=== PATIENT | male | born 1955 | race Caucasian/White ===

== ENCOUNTER 2019-02-15 12:00 | Observation (INO) ==
[2019-02-15 12:33] LABS: Basophils # (auto) 0.02 K/uL (0-0.2); Basophils % (auto) 0.3 %; Eosinophils # (auto) 0.09 K/uL (0-0.5); Eosinophils % (auto) 1.5 %; Hematocrit (blood only) 46.6 % (42-52); Immature Granulocytes # (auto) 0.01 K/uL (0.00-0.02); Immature Granulocytes % (auto) 0.2 %; Lymphocytes # (auto) 0.93 K/uL (1.2-3.4); Lymphocytes % (auto) 15.5 %; Mean Corpuscular Hemoglobin 30.8 pg (25-34); Mean Corpuscular Hgb Conc 34.3 g/dL (32-36); Mean Corpuscular Volume 89.8 fL (80-100); Mean Platelet Volume 11.2 fL (7.4-10.4); Monocytes # (auto) 0.48 K/uL (0.11-0.59); Neutrophils # (auto) 4.46 K/uL (1.4-6.5); Neutrophils % (auto) 74.5 %; Platelet Count 246 K/uL (130-400); RDW Coefficient of Variation 13.2 % (11.5-14.5); RDW Standard Deviation 43.7 fL (36.4-46.3); Red Blood Count 5.19 M/uL (4.7-6.1); White Blood Count 5.99 K/uL (4.8-10.8)
--- NOTE | 2019-02-15 12:41 | XRay Report ---
XR chest 1V portable CLINICAL HISTORY: Chest Pain COMPARISON STUDY: No previous studies for comparison. FINDINGS: Lung volumes are mildly diminished. Right basilar opacity favors atelectasis. There is no p neumothorax or pleural effusion. There is no consolidation or evidence for pulmonary edema. Cardiomed iastinal silhouette is unremarkable. IMPRESSION: No acute cardiopulmonary findings. Electronically signed by: Miguel Benito M.D. 02/15/2019 12:40 PM
[2019-02-15 12:48] LABS: Alanine Aminotransferase 47 U/L (12-78); Albumin Level 3.7 gm/dl (3.4-5.0); Aspartate Aminotransferase 22 U/L (15-37); Blood Urea Nitrogen 21 mg/dl (7-18); Calcium 8.5 mg/dl (8.5-10.1); Carbon Dioxide 22 mmol/L (21-32); Chloride 108 mmol/L (98-107); Creatinine Clr Calc Pharmacy 92.1 ml/min; Est GFR (African American) 98.3; Est GFR (Non-African American) 84.9; Glucose 113 mg/dl (70-99); Potassium 3.9 mmol/L (3.5-5.1); Sodium 140 mmol/L (136-145)
[2019-02-15 12:56] LABS: Albumin Globulin Ratio 1.2 (0.9-2); Alkaline Phosphatase 61 U/L (45-117); Bilirubin,Total 0.4 mg/dl (0.2-1); Total Protein 6.7 gm/dl (6.4-8.2); Troponin I < 0.015 ng/ml (0-0.045)
[2019-02-15] MEDS ORDERED: NITROGLYCERIN 2% OINTMENT 30GM TUBE EXT ONE (13:18)
[2019-02-15 13:29] LABS: INR 0.9 (0.9-1.1); Prothrombin Time 9.7 Seconds (9.0-12.0)
[2019-02-15 14:17] LABS: Partial Thromboplastin Time 26.5 Seconds (21.0-31.0)
--- NOTE | 2019-02-15 15:19 | History & Physical Report ---
Date of Service February 15, 2019 Assessment & Plan (1) Chest pain, precordial: Sx concerning for ACS Trop neg x1, serials pending EKG neg for acute If trop neg, stress treadmill in AM t/c Lyme given hx and exposure risk, testing pending (2) Hx of Lyme disease: Hx of sx resolution with tx despite neg Lyme testing Current bite, no rash Lyme pending (3) DVT prophylaxis: Ambulation History of Present Illness Primary Care Provider: LILA GOMEZ 63 y/o M c/o chest pain. Pt states he was driving to work this AM when he had sudden onset of sharp, stabbing chest pain that started on the R side of his chest and moved to the L side and into both UE. He had numbness and tingling in his UE. He became SOB and diaphoretic. Pt pulled over to the side of the road and leaned over the steering wheel and all sx resolved. He continued on his way to work, however his sx returned so he came to the ED. Pt was given nitro and sx have mostly resolved. He states he still has slight L UE pain, but much better. He has no hx of prior chest pain issues. 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 He had no issues over the weekend with light work around his home. He has been eating without issue. No prior SOB. Pt denies fever, abd pain, n/v/c/d, LE pain. Pt states chronic L LE swelling s/p crush injury. Pt notes hx of Lyme x2 in which he was hospitalized, the last time being earlier this year in the Spring. He states that he has never had chest pain with his Lyme dx, but that his blood tests are always negative. He had a bull's eye rash during one of these episodes. He was treated with doxy based on sx and both times felt much improved after starting abx. His sx were fatigue, dehydration, abn labs. Pt did recently travel to [facility] in November of this year. No other health issues since the Lyme dx prior to this trip. Pt does note a bite on his L thigh. He felt it was more c/w a spider bite. No rash. Frequent tick exposure as a evening sitter. Allergies Allergy/AdvReac Type Severity Reaction Status Date / Time No Known Allergies Allergy Unverified 02/15/19 12:50 Home Medications Home Medications Medication Instructions Recorded Confirmed Type No Known Home Medications 02/15/19 02/15/19 History Past Med/Surg History Medical History No significant past medical history Family History Grandfather Myocardial infarction, Onset Age: 63 Sister Myocardial infarction, Onset Age: 63 Social History Feels Safe at Home: Yes Smoking Status: Never smoker Hx Alcohol Use: Yes (shot of whiskey HS a few nights a week for sleep, none in the last week) Hx Substance Use: No Review of Systems Review of Systems: Pertinent positives and negatives reviewed in HPI--all others negative Physical Exam Constitutional: WD/WN, vitals as above Eyes: normal visual smallwood by confrontation and + anicteric sclerae Neck: normal visual inspection and trachea midline Respiratory: normal respiratory effort, lungs clear to auscultation Cardiovascular: Rate/Rhythm: regular rate and regular rhythm Gastrointestinal (Abdomen): Inspection/Auscultation: abdomen not distended Percussion/Palpation: abdomen soft; abdomen nontender Musculoskeletal: Head/Neck/Chest: normocephalic and head atraumatic Trace L LE edema, peripheral pulses intact Skin: no rashes, warm and dry Neurologic: awake; not confused Speech / Cognition: normal speech Psychiatric: A+Ox3, euthymic affect Results & Data Vital Signs (Past 12 Hours) Vital Signs Temp Pulse Pulse Resp BP BP Pulse Ox 02/15/19 15:00 66 20 133/93 93 02/15/19 14:09 65 18 139/88 93 02/15/19 12:07 36.9 C 75 18 154/86 H 94 Diagnostic Findings CXR: neg for acute ECG Rhythm: normal sinus Code Status & VTE Plan Code Status Full code VTE Prophylaxis Plan VTE Prophylaxis will be ordered: Yes PG Care Time/CCT Total # of Minutes Spent Total Time Spent with Patient: Total time spent is greater than 50% in coordination of care (as documented) at patient's floor/unit and/or counseling patient:
--- NOTE | 2019-02-15 17:21 | Emergency Department Note ---
Entered by Lesley Mauro acting as a scribe for Cristhian Rainey MD History of Present Illness General Chief complaint: Chest Pain Stated complaint: chest pain Source: patient History of Present Illness Onset (ago): hour(s) 3 Location: chest Pain Consistency: + other (episodes) Maximum Pain Intensity: 0 Quality: + other (chest tightness) Associated symptoms: + diaphoresis, + nausea/vomiting, + shortness of breath and + other (+bilateral shoulder blades pain; +neck stiffness; -leg swelling/pain) Treatments prior to arrival: other (sublingual NG) The patient is a 63 year old male who presents to the Emergency Room with complaints of two episodes of chest tightness that began approximately 2-3 hours ago. 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 The patient states along with the chest tightness, both his shoulder blades began to hurt and he became short of breath. The patient also notes neck stiffness and becoming sweaty and nauseous. The patient states the episode then let up, and he began to continue driving to work. The patient states he then experienced another episode of symptoms upon arriving to work. The patient states he was given sublingual NG en route, which he states has helped his breathing. The patient describes the chest tightness as an 8/10 at its worst, and he currently rates it as a 3/10. The patient denies swelling or pain in his legs different from baseline. The patient denies history of lungs in clots. The patient states he or his family have never had cardiac issues in the past. The patient notes he went to [facility] in early November. The patient denies being a smoker. Home Medications Home Medications Medication Instructions Recorded Confirmed Type No Known Home Medications 02/15/19 02/15/19 History Allergies Allergy/AdvReac Type Severity Reaction Status Date / Time No Known Allergies Allergy Unverified 02/15/19 12:50 Past Med/Surg History Medical History No significant past medical history Family History Grandfather Myocardial infarction, Onset Age: 63 Sister Myocardial infarction, Onset Age: 63 Social History Feels Safe at Home: Yes Smoking Status: Never smoker Hx Alcohol Use: Yes (shot of whiskey HS a few nights a week for sleep, none in the last week) Hx Substance Use: No Review of Systems See HPI for pertinent positives & negatives. and A total of 10 systems reviewed and were otherwise negative Physical Exam Vital Signs Vital Signs - 24 hr 02/15/19 12:07 02/15/19 14:09 02/15/19 15:00 Temperature 36.9 C Temperature Source Oral Sepsis Recent Fever Within 48 Hours No Sepsis New/Unexplained Change in Mental Status No Sepsis Action Taken by Nursing No Action Required Pulse Rate 75 Pulse Rate [Apical] 65 66 Pulse Rhythm [Apical] Regular Respiratory Rate 18 18 20 Respiratory Effort / Characteristics Non-Labored Spontaneous Non-Labored Spontaneous Respiratory Depth Normal Normal Respiratory Pattern Regular Regular Blood Pressure 154/86 H Blood Pressure [Right Arm] 139/88 133/93 Blood Pressure Mean 108 Blood Pressure Mean [Right Arm] 105 106 Blood Pressure Position [Right Arm] Lying Pulse Oximetry 94 93 93 Oxygen Delivery Method Room Air Room Air Room Air 02/15/19 15:42 02/15/19 16:16 Temperature Temperature Source Sepsis Recent Fever Within 48 Hours Sepsis New/Unexplained Change in Mental Status Sepsis Action Taken by Nursing Pulse Rate Pulse Rate [Apical] 73 57 L Pulse Rhythm [Apical] Respiratory Rate 16 16 Respiratory Effort / Characteristics Non-Labored Spontaneous Non-Labored Spontaneous Respiratory Depth Respiratory Pattern Blood Pressure Blood Pressure [Right Arm] 135/86 115/74 Blood Pressure Mean Blood Pressure Mean [Right Arm] 102 87 Blood Pressure Position [Right Arm] Lying Lying Pulse Oximetry 95 95 Oxygen Delivery Method Room Air Room Air Constitutional: Vital signs reviewed. Eyes: Pupils are equal round reactive to light. Conjunctiva are noninjected. ENT: Pharynx is clear without erythema or exudate. Mucous membranes are moist. Neck supple without meningeal signs. Respiratory: Clear to auscultation bilaterally. Breath sounds are equal bilaterally. Cardiovascular: Regular rate and rhythm. No rubs or gallops. GI: Soft, nondistended and nontender. Bowel sounds are present. Musculoskeletal: No peripheral edema. No lower extremity tenderness. Integumentary: No cyanosis. Neurological: The patient is awake and alert. No focal deficits. Psychiatric: Normal affect. Course 1312: Past medical records reviewed. The patient was evaluated in room A9A. A complete history and physical exam was performed. 1338: I reevaluated the patient. The patient states the chest tightness is gone. The patient's D-Dimer was negative. 1341: I reviewed the patient's case with Marianna Waller. Dr. Vasquez- Poncho Waller will evaluate the patient for further management. 1409: The welfare case worker informed me that the patient's insurance information was incorrect, and the patient could not be seen at [facility]. I reviewed the patient's case with Dr. Montano-Poncho [facility]. Dr. Montano will evaluate the patient for further management. Consultations Consultation #1: I reviewed the patient's case with Marianna Waller. Dr. Augustina Waller will evaluate the patient for further management. Time: 13:41 Consultation #2: The welfare case worker informed me that the patient's insurance information was incorrect, and the patient could not be seen at [facility]. I reviewed the patient's case with Dr. Thomas [facility]. Dr. Montano will evaluate the patient for further management. Time: 14:09 Additional Consultation(s): Administered Medications Discontinued Medications Nitroglycerin (Nitro-Bid 2%) 1 inch EXT NOW ONE Stop: 02/15/19 13:19 Last Admin: 02/15/19 13:30 Dose: 1 inch Documented by: [id number] Medical Decision Making Differential Diagnosis Differential diagnoses include unstable angina, VT, PE, pleurisy, GERD, amongst others. Medical Records Attestation: I reviewed the patient's medical records. I did perform a limited focused review of portions of the patient's old chart on the electronic medical record. The patient has had no recent pertinent visits to this hospital. Home Medications Current Medication List: was personally reviewed by me Laboratory Data Attestation: I reviewed the patient's lab results. Result diagrams: 02/15/19 11:41 02/15/19 11:41 Lab Results 02/15/19 02/15/19 02/15/19 Range/Units 11:41 11:41 11:41 WBC 5.99 (4.8-10.8) K/uL RBC 5.19 (4.7-6.1) M/uL Hgb 16.0 (14.0-18.0) g/dL Hct 46.6 (42-52) % MCV 89.8 (80-100) fL MCH 30.8 (25-34) pg MCHC 34.3 (32-36) g/dL RDW Std Deviation 43.7 (36.4-46.3) fL RDW Coeff of Dexter 13.2 (11.5-14.5) % Plt Count 246 (130-400) K/uL MPV 11.2 H (7.4-10.4) fL Immature Gran % (Auto) 0.2 % Neut % (Auto) 74.5 % Lymph % (Auto) 15.5 % Rogers % (Auto) 8.0 % Eos % (Auto) 1.5 % Baso % (Auto) 0.3 % Immature Gran # (Auto) 0.01 (0.00-0.02) K/uL Neut # (Auto) 4.46 (1.4-6.5) K/uL Lymph # (Auto) 0.93 L (1.2-3.4) K/uL Rogers # (Auto) 0.48 (0.11-0.59) K/uL Eos # (Auto) 0.09 (0-0.5) K/uL Baso # (Auto) 0.02 (0-0.2) K/uL PT Cancelled INR Cancelled APTT Cancelled PTT Ratio Cancelled POC D-Dimer (0-450) ng/mlFEU Sodium 140 (136-145) mmol/L Potassium 3.9 (3.5-5.1) mmol/L Chloride 108 H (98-107) mmol/L Carbon Dioxide 22 (21-32) mmol/L Anion Gap 10.0 (3-11) BUN 21 H (7-18) mg/dl Creatinine 0.95 (0.6-1.4) mg/dl Est Cr Clr Drug Dosing 92.1 ml/min Est GFR ( Amer) 98.3 Est GFR (Non-Af Amer) 84.9 BUN/Creatinine Ratio 22.0 H (10-20) Glucose 113 H (70-99) mg/dl Calcium 8.5 (8.5-10.1) mg/dl Total Bilirubin 0.4 (0.2-1) mg/dl AST 22 (15-37) U/L ALT 47 (12-78) U/L Alkaline Phosphatase 61 (45-117) U/L Troponin I < 0.015 (0-0.045) ng/ml Total Protein 6.7 (6.4-8.2) gm/dl Albumin 3.7 (3.4-5.0) gm/dl Globulin 3.0 (2.5-4.0) gm/dl Albumin/Globulin Ratio 1.2 (0.9-2) 02/15/19 02/15/19 02/15/19 Range/Units 13:03 13:03 13:23 WBC (4.8-10.8) K/uL RBC (4.7-6.1) M/uL Hgb (14.0-18.0) g/dL Hct (42-52) % MCV (80-100) fL MCH (25-34) pg MCHC (32-36) g/dL RDW Std Deviation (36.4-46.3) fL RDW Coeff of Dexter (11.5-14.5) % Plt Count (130-400) K/uL MPV (7.4-10.4) fL Immature Gran % (Auto) % Neut % (Auto) % Lymph % (Auto) % Rogers % (Auto) % Eos % (Auto) % Baso % (Auto) % Immature Gran # (Auto) (0.00-0.02) K/uL Neut # (Auto) (1.4-6.5) K/uL Lymph # (Auto) (1.2-3.4) K/uL Rogers # (Auto) (0.11-0.59) K/uL Eos # (Auto) (0-0.5) K/uL Baso # (Auto) (0-0.2) K/uL PT 9.7 INR 0.9 APTT 26.5 PTT Ratio 1.0 POC D-Dimer 326 (0-450) ng/mlFEU Sodium (136-145) mmol/L Potassium (3.5-5.1) mmol/L Chloride (98-107) mmol/L Carbon Dioxide (21-32) mmol/L Anion Gap (3-11) BUN (7-18) mg/dl Creatinine (0.6-1.4) mg/dl Est Cr Clr Drug Dosing ml/min Est GFR ( Amer) Est GFR (Non-Af Amer) BUN/Creatinine Ratio (10-20) Glucose (70-99) mg/dl Calcium (8.5-10.1) mg/dl Total Bilirubin (0.2-1) mg/dl AST (15-37) U/L ALT (12-78) U/L Alkaline Phosphatase (45-117) U/L Troponin I (0-0.045) ng/ml Total Protein (6.4-8.2) gm/dl Albumin (3.4-5.0) gm/dl Globulin (2.5-4.0) gm/dl Albumin/Globulin Ratio (0.9-2) Imaging Data Radiologist's Impression: Radiology results as stated below per my review and the radiologist's interpretation: XR chest 1V portable CLINICAL HISTORY: Chest Pain COMPARISON STUDY: No previous studies for comparison. FINDINGS: Lung volumes are mildly diminished. Right basilar opacity favors atelectasis. There is no pneumothorax or pleural effusion. There is no consolidation or evidence for pulmonary edema. Cardiomediastinal silhouette is unremarkable. IMPRESSION: No acute cardiopulmonary findings. Electronically signed by: Miguel Benito M.D. 02/15/2019 12:40 PM ECG Data Attestation: I personally reviewed and interpreted this ECG as follows: Indication: chest pain Rate (beats per minute): 85 Rhythm: normal sinus Findings: no PVC and no ST elevation Blood Pressure Blood Pressure Findings: Elevated blood pressure Blood Pressure Disposition: Referred to patients primary care provider MDM Narrative I did evaluate the patient as noted above. He is presenting with a concerning history for cardiac disease. He developed chest pressure and heaviness with shortness of breath and radiation to his shoulders. He was diaphoretic and isabella seous. He had some relief with nitroglycerin sublingually. I did treat him with nitroglycerin paste here as he has some residual chest pain. The patient was placed on a continuous vacuum technician. I did order and personally review the patient's 12-lead EKG as described above. His twelve-lead EKG does not demonstrate any acute ischemia. I did order and personally reviewed the images of the patient's chest x-ray as described above. Chest x-ray is unremarkable. I did order and review the patient's blood work as noted in the electronic medical record. Initial troponin is negative. D-dimer is negative as well. I did discuss the test results with the patient. I did recommend hospitalization for further care and evaluation and repeat cardiac biomarkers. I did speak to the hospitalist and welfare case worker regarding this patient. Impression & Plan Chest pain, precordial Discharge Plan Visit Data Chief Complaint: Chest Pain Stated Complaint: chest pain ED Provider: Cristhian Rainey Discharge Problem: Chest pain, precordial Patient Disposition: Being Evaluated by Hospitalist Forms Stand Alone Forms: Call Back Authorization, My [facility] Prescriptions Prescriptions: No Action No Known Home Medications RF: 0 Referrals Referrals: PCP,NO [Physician] - The scribe's documentation has been prepared under my direction and personally reviewed by me in its entirety. I confirm that the note above accurately reflects all work, treatment, procedures, and medical decision making performed by me.
[2019-02-15] MEDS ORDERED: ONDANSETRON INJ 2 MG/ML 2 ML VIAL IV PRN (18:21)
[2019-02-15] MEDS ORDERED: MAGNESIUM HYDROXIDE SUSP 30 ML UDC PO PRN (18:21)
[2019-02-15 19:30] LABS: Lyme Ab IgG w/WB Rflx Negative (Negative); Lyme Ab IgM w/WB Rflx Negative (Negative)
[2019-02-15] MEDS: NITROGLYCERIN SL 0.4 MG/TAB TAB SL PRN ×3 (20:03→20:15)
[2019-02-15] MEDS: ACETAMINOPHEN 325 MG TAB PO PRN (20:26)
[2019-02-15] MEDS ORDERED: MoRPHine SULFATE 2 MG/ML CARP IV PRN (20:44)
[2019-02-15] MEDS: NITROGLYCERIN 2% OINTMENT 30GM TUBE EXT SCH (21:34)
[2019-02-16] MEDS: NITROGLYCERIN 2% OINTMENT 30GM TUBE EXT SCH ×4 (02:59→21:27)
[2019-02-16] MEDS: ACETAMINOPHEN 325 MG TAB PO PRN ×3 (08:34→21:26)
--- NOTE | 2019-02-16 17:28 | Cardiology Consultation ---
Date of Consultation February 16, 2019 Assessment & Plan (1) Chest pain, precordial: I am concerned that his chest discomfort is due to myocardial ischemia and coronary artery disease. He has not had exertional discomfort in the past and he works quite hard, however the character is worrisome and the fact that it occurred now during treadmill testing is quite worrisome. His echocardiographic images during stress did not seem normal either. Despite the negative cardiac enzymes I think it is concerning enough that we need to plan cardiac catheterization. I discussed it with him and we will plan on doing that tomorrow. 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 While he was driving to work on February 15, 2019 he had a severe substernal chest discomfort which radiate into both arms. He was short of breath and diaphoretic with it. The symptoms lasted perhaps 15 to 20 minutes. He had recurrence of his symptoms later that morning and came into the emergency he was given nitroglycerin but was still having symptoms in the emergency room. He was admitted, cardiac enzymes were performed (which were negative) and the symptoms have not recurred. His electrocardiogram did not show significant abnormalities. With negative cardiac enzymes and no electrocardiographic evidence of ischemia we did schedule a stress echo. During the stress test he did have substernal chest discomfort, I was supervising the test and he appeared uncomfortable, he was also quite short of breath. We therefore discontinued the stress test and the stress echocardiogram did not appear to be completely normal. His symptoms resolved after several minutes in recovery after the stress test. Allergies Allergy/AdvReac Type Severity Reaction Status Date / Time No Known Allergies Allergy Unverified 02/15/19 12:50 Home Medications Home Medications Medication Instructions Recorded Confirmed Type No Known Home Medications 02/15/19 02/15/19 History Patient History Medical History No significant past medical history Family History Grandfather Myocardial infarction, Onset Age: 63 Sister Myocardial infarction, Onset Age: 63 Social History Preferred Language: Irish Communication Ability: Effective Beliefs That Will Affect Care: None Current Living Situation: Spouse Feels Safe at Home: Yes Smoking Status: Never smoker Hx Alcohol Use: Yes (shot of whiskey HS a few nights a week for sleep, none in the last week) Alcohol type: hard liquor Hx Substance Use: No Physical Exam Physical Exam: Constitutional: Alert, cooperative and in no distress. HEENT: Unremarkable Neck: No jugular venous distention, carotid pulses are normal and equal bilaterally without bruits. Pulmonary: Clear to auscultation bilaterally. Cardiac: Regular rhythm with no murmur, gallop or rub. Abdomen: Soft, nontender with normal bowel sounds. Extremities: No edema. Distal pulses intact. Neurologic: No focal findings. Gait is steady. Skin: No rash, ecchymoses or petechiae. Results & Data Vital Signs (Past 12 Hours) Vital Signs Temp Pulse Pulse Resp BP BP Pulse Ox 02/16/19 17:05 36.7 C 116 H 18 163/93 H 02/16/19 15:04 36.4 C L 69 18 138/82 93 02/16/19 11:45 36.9 C 73 19 122/70 95 02/16/19 07:02 36.7 C 80 18 104/64 93 Diagnostic Findings An electrocardiogram done on arrival in the showed sinus rhythm with some minor T wave flattening inferiorly. This was repeated about 2 hours later and appeared normal. A repeat done about 6 hours after that was similar to the first. There is no clear evolution. Results of the stress test are noted above. Telemetry shows sinus rhythm, no significant arrhythmia PG Care Time/CCT Total # of Minutes Spent Total Time Spent with Patient: Total time spent is greater than 50% in coordination of care (as documented) at patient's floor/unit and/or counseling patient:
[2019-02-16] MEDS: NITROGLYCERIN SL 0.4 MG/TAB TAB SL PRN ×2 (19:56→21:27)
[2019-02-16] MEDS ORDERED: ASPIRIN 325 MG ECTAB PO ONE (20:10)
[2019-02-16 20:42] LABS: BUN Creatinine Ratio 23.2 (10-20); Blood Urea Nitrogen 23 mg/dl (7-18); Carbon Dioxide 25 mmol/L (21-32); Chloride 108 mmol/L (98-107); Creatinine Clr Calc Pharmacy 85.3 ml/min; Est GFR (African American) 91.3; Est GFR (Non-African American) 78.8; Glucose 85 mg/dl (70-99); Magnesium 2.4 mg/dl (1.8-2.4); Potassium 4.1 mmol/L (3.5-5.1); Sodium 139 mmol/L (136-145)
[2019-02-16 20:46] LABS: Troponin I < 0.015 ng/ml (0-0.045)
--- NOTE | 2019-02-16 22:48 | Hospitalist Progress Note ---
Date of Service February 16, 2019 Assessment & Plan (1) Chest pain, precordial: Sx concerning for ACS tropx3 negative. D/W cardio would like a stress test. This was done and was not fully negative. Will have a cardiac cath in the AM. Doubt P/E as patient had a negative d dimer, no tachycardia, no hypoxia. EKG neg for acute t/c Lyme given hx and exposure risk, testing was negative (2) Hx of Lyme disease: Hx of sx resolution with tx despite neg Lyme testing Current bite, no rash Lyme negative (3) DVT prophylaxis: Ambulation Subjective 63 yo male reports having a 3 episodes of chest pain. These all occured at rest. It began with back pain near the right shoulder, and it radiated to the front of the chest. This was moderate to severe in intensity, and this was sharp. This was accompanied by SOB and diaphoeresis. Review of Systems Review of Systems: All systems reviewed & are unremarkable except as noted in HPI & below Physical Exam Physical Exam: Constitutional: WD/WN, vitals as above Eyes: normal visual smallwood by confrontation and + anicteric sclerae Neck: normal visual inspection and trachea midline Respiratory: normal respiratory effort, lungs clear to auscultation Cardiovascular: Rate/Rhythm: regular rate and regular rhythm Gastrointestinal (Abdomen): Inspection/Auscultation: abdomen not distended Percussion/Palpation: abdomen soft; abdomen nontender Musculoskeletal: Head/Neck/Chest: normocephalic and head atraumatic Trace L LE edema, peripheral pulses intact Skin: no rashes, warm and dry Neurologic: awake; not confused Speech / Cognition: normal speech Psychiatric: A+Ox3, euthymic affect Results & Data Vital Signs (Past 12 Hours) Vital Signs Temp Pulse Pulse Resp BP BP Pulse Ox 02/16/19 19:57 36.6 C 71 18 152/89 H 96 02/16/19 19:04 36.5 C 74 18 124/76 95 02/16/19 17:51 36.6 C 76 18 135/78 96 02/16/19 17:25 36.6 C 76 18 136/83 97 02/16/19 17:05 36.7 C 116 H 18 163/93 H 02/16/19 15:04 36.4 C L 69 18 138/82 93 02/16/19 11:45 36.9 C 73 19 122/70 95 PG Care Time/CCT Total # of Minutes Spent Total Time Spent with Patient: Total time spent is greater than 50% in coordination of care (as documented) at patient's floor/unit and/or counseling patient:
[2019-02-17] MEDS: NITROGLYCERIN 2% OINTMENT 30GM TUBE EXT SCH ×3 (04:20→16:15)
--- NOTE | 2019-02-17 08:51 | Pre Anesthesia Assessment ---
Date of Service February 17, 2019 Pre Sedation Assessment Vital Signs Temp Pulse Pulse Resp BP BP Pulse Ox 02/17/19 07:29 36.5 C 73 19 132/81 94 02/17/19 03:55 36.5 C 73 16 121/75 95 02/16/19 23:53 36.9 C 70 16 136/69 95 02/16/19 19:57 36.6 C 71 18 152/89 H 96 02/16/19 19:04 36.5 C 74 18 124/76 95 02/16/19 17:51 36.6 C 76 18 135/78 96 02/16/19 17:25 36.6 C 76 18 136/83 97 02/16/19 17:05 36.7 C 116 H 18 163/93 H 02/16/19 15:04 36.4 C L 69 18 138/82 93 02/16/19 11:45 36.9 C 73 19 122/70 95 Cardiovascular + regular rate Respiratory + respiratory effort normal Pre-Sedation Airway Assessment Smoking Status: Never smoker Hx Sleep Apnea: No Hx Difficult Intubation: No Short, Thick Neck: No Thyromental Distance: > or= 3.5 Finger Breadths Oral Cavity: + WNL Mallampati Class: III ASA: ASA3 Procedure Planning Contraindications for Sedation: none Current Medications Reviewed: Yes Notes The planned sedation has been discussed with the patient. Informed Consent was obtained. I have identified the patient, determined the appropriateness of sedation and have assessed the patient immediately prior to the procedure. All medicine(s) and interventions are by my order.
[2019-02-17] MEDS ORDERED: ASPIRIN 325 MG ECTAB PO SCH (09:00)
[2019-02-17] MEDS ORDERED: HEPARIN (PORCINE) 1000 UNIT/ML 10 ML (CATH LAB USE ONLY) ONE (10:09)
[2019-02-17] MEDS ORDERED: fentaNYL citrate 100 MCG/2 ML VIAL ONE (10:10)
[2019-02-17] MEDS ORDERED: MIDAZOLAM HCL 1 MG/ML 2ML VIAL ONE (10:10)
[2019-02-17] MEDS ORDERED: NiCARDipine HCL INJ 2.5 MG/ML 10 ML AMP ONE (10:10)
[2019-02-17] MEDS ORDERED: NITROGLYCERIN/D5W 100MCG/ML 20ML SYR ONE (10:10)
--- NOTE | 2019-02-17 11:18 | Post Operative Brief Note ---
Cardiology Brief Post Op Date of Surgery February 17, 2019 Pre & Post Diagnosis Operation Date: 02/17/19 08:30 <No data on this case meets the specified criteria> Procedure LHC, coronaries Printing Table Worker Jorge Perkins MD Reed Or Wind Instrument Tuner none Estimated Blood Loss 5 Findings See Below Normal coronaries and LVEDP Complications none Disposition Accompanied Patient To Recovery: No Disposition: PCU Overlapping Procedure I was immediately available: during the entire case.
--- NOTE | 2019-02-17 11:20 | Post Anesthesia Assessment ---
Date of Service February 17, 2019 Post Sedation Assessment Vital Signs Temp Pulse Pulse Pulse Resp BP BP 02/17/19 09:00 64 02/17/19 07:29 36.5 C 73 19 132/81 02/17/19 03:55 36.5 C 73 16 121/75 02/16/19 23:53 36.9 C 70 16 136/69 02/16/19 19:57 36.6 C 71 18 152/89 H 02/16/19 19:04 36.5 C 74 18 124/76 02/16/19 17:51 36.6 C 76 18 135/78 02/16/19 17:25 36.6 C 76 18 136/83 02/16/19 17:05 36.7 C 116 H 18 163/93 H 02/16/19 15:04 36.4 C L 69 18 138/82 02/16/19 11:45 36.9 C 73 19 122/70 Pulse Ox 02/17/19 09:00 02/17/19 07:29 94 02/17/19 03:55 95 02/16/19 23:53 95 02/16/19 19:57 96 02/16/19 19:04 95 02/16/19 17:51 96 02/16/19 17:25 97 02/16/19 17:05 02/16/19 15:04 93 02/16/19 11:45 95 Recovery Score Activity: Moves 4 extremities Respiration: Deep Breath/Cough Circulation: +/-20% PreAnes Value Consciousness: Fully Awake Oxygen Saturation: > 92% On Room Air Post Sedation Plan On clinical assessment, the patient appears to have tolerated the sedation without complications. Patient is recovering as anticipated. Patient will continue to be monitored by nursing and may be discharged when sedation discharge criteria are met per below protocol. Upon Completions of procedure and additional 15 minutes continue every 5 minute vital signs and the P.A.R. score; then discharge to a Phase I or Fast Track to Phase II per the following guidelines: * Discharge Patient to appropriate Phase II area if PAR is 8 or greater or return to pre- procedure baseline. The post - procedure orders will be as directed. * If PAR score is less than 8 or not return to pre-procedure baseline then patient will follow Phase I monitoring till PAR is reached for Phase II. The Phase I may be done in procedure room or may call to secure a Phase I area. * If naloxone or flumazenil are used for reversal, hold in Phase I for continued monitoring from when last reversal dose was given for a minimum of 60 minutes or longer pending the nurse and/or physician discretion of patient condition before discharge to Phase II. Please call the Sedation Physician to re-evaluate and complete post-note for discharge to Phase II area. Do NOT discharge from procedure sedation or Phase 1 until post- sedation evaluation note is complete by procedure /sedation MD Sedation Discharge Instructions to be given to the patient at discharge to home.
[2019-02-17] MEDS ORDERED: OPTIRAY 320 125ml IV PRN (15:56)
--- NOTE | 2019-02-17 16:17 | CT Scan Report ---
CT angio chest dissec wo/w con CLINICAL HISTORY: 63 years-old Male presenting with atypical chest pain, status post left heart erika terization, clinical concern for aortic injury. TECHNIQUE: Multidetector CT angiography of the chest was performed before and after the administratio n of intravenous contrast. 3-D volumetric and/or maximum intensity projection (MIP) images were subse quently reconstructed for review. IV contrast: 119 mL of Optiray 320. One or more dose lowering techn iques were used consistent with the principles of ALARA (as low as reasonably achievable), including automatic exposure control, mA or kV adjustment to individual patient size, and/or use of iterative r econstruction. COMPARISON: Chest x-ray performed on 02/15/2019 and the left heart catheterization performed earlier t . CT DOSE (mGy.cm): The estimated cumulative dose is 810.24 mGy.cm. FINDINGS: Trust Accounts Supervisor topogram: Unremarkable. Vasculature: The study is adequate for assessment of the aorta. Precontrast imaging demonstrates no evidence of in tramural hematoma. Postcontrast imaging demonstrates no evidence of dissection, penetrating ulcer, or aneurysm. Allowing for timing of the contrast bolus, no gross evidence of a filling defect within th e pulmonary arteries to suggest embolus. Main pulmonary artery is not enlarged. No flattening of the interventricular septum. No intracardiac filling defect. No reflux of contrast into the hepatic veins . Remaining chest: Soft tissues: Normal thyroid and thoracic inlet. No axillary, supraclavicular, mediastinal, or hilar lymphadenopathy. Normal heart size. No pericardial or pleural effusion. Upper abdomen normal. Lungs and airways: No pneumothorax. Central airways patent. Pulmonary arteries are not significantly enlarged relative to adjacent bronchi. No interlobular septal thickening. Minimal dependent changes l ikely atelectasis. Musculoskeletal: Normal osseous structures. IMPRESSION: 1. No evidence of acute aortic injury. No acute intrathoracic pathology. Electronically signed by: Chucho Odonnell M.D. 02/17/2019 4:15 PM
--- NOTE | 2019-02-18 16:42 | Cardiac Catheterization ---
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 Cardiac Status Clinical evaluation leading to the procedure CAD Presenation: Stable angina Diagnostic Physicians Name: Jorge Perkins MD Closure Device Recommendations: None Cardiac Cath Procedure Full Procedure Date February 17, 2019 Pre-Procedure Diagnosis Pre-Procedure Diagnosis: Positive Stress Test AUC Score AUC Score: 8 Post-Procedure Diagnosis Post-Procedure Diagnosis: Normal Coronary Arteries Procedure(s) Performed Procedure(s) Performed: Coronary Angiography and Left Heart Cath Online Marketing Strategist Jorge Perkins MD Preschool Associate Teacher(s) none Estimated Blood Loss Estimated Blood Loss: 10cc Medication(s) Medication(s): Fentanyl, Heparin, Nicardipine, Nitroglycerin and Versed Summary of Findings Coronary angiography: Left main: Left main was normal in size and caliber bifurcated normally into left anterior descending left circumflex arteries. No disease in this vessel Left anterior descending: Left anterior descending was a large transapical vessel. Produced 1 large diagonal branch in very diminutive distal branches. There is no significant disease in this vessel Left circumflex: Left circumflex artery was a codominant vessel. Produced a single large OM system with 2 distal branches. One branch was quite tortuous. There did not appear to be any significant disease in this distribution Right coronary artery: The right coronary was a codominant vessel. There was approximately 40% stenosis in the midportion of vessel but no other significant or obstructive disease. Hemodynamics Rest Ao:: 118/70 mm emerge Final Ao: 143/69 mm of mercury LV: 142/0 mm of mercury Left ventricular end-diastolic pressure 9 mm of mercury Recommendations Recommendations: None Radiation Exposure (mGy) o Contrast (mls) o Procedural Complication(s) None Disposition PCU I attest to the content of the Intraoperative Record and any orders documented therein. Any exceptions are noted below.
--- NOTE | 2019-02-28 22:23 | Discharge Summary ---
Date of Service February 17, 2019 Admission HPI Per Admitting Provider 63 y/o M c/o chest pain. Pt states he was driving to work this AM when he had sudden onset of sharp, stabbing chest pain that started on the R side of his chest and moved to the L side and into both UE. He had numbness and tingling in his UE. He became SOB and diaphoretic. Pt pulled over to the side of the road and leaned over the steering wheel and all sx resolved. He continued on his way to work, however his sx returned so he came to the ED. Pt was given nitro and sx have mostly resolved. He states he still has slight L UE pain, but much better. He has no hx of prior chest pain issues. 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 He had no issues over the weekend with light work around his home. He has been eating without issue. No prior SOB. Pt denies fever, abd pain, n/v/c/d, LE pain. Pt states chronic L LE swelling s/p crush injury. Pt notes hx of Lyme x2 in which he was hospitalized, the last time being earlier this year in the Spring. He states that he has never had chest pain with his Lyme dx, but that his blood tests are always negative. He had a bull's eye rash during one of these episodes. He was treated with doxy based on sx and both times felt much improved after starting abx. His sx were fatigue, dehydration, abn labs. Pt did recently travel to [facility] in November of this year. No other health i ssues since the Lyme dx prior to this trip. Pt does note a bite on his L thigh. He felt it was more c/w a spider bite. No rash. Frequent tick exposure as a aircraft structural repairer. 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 Discharge Exam Constitutional: WD/WN, vitals as above Eyes: normal visual [place] by confrontation and + anicteric sclerae Neck: normal visual inspection and trachea midline Respiratory: normal respiratory effort, lungs clear to auscultation Cardiovascular: Rate/Rhythm: regular rate and regular rhythm Gastrointestinal (Abdomen): Inspection/Auscultation: abdomen not distended Percussion/Palpation: abdomen soft; abdomen nontender Musculoskeletal: Head/Neck/Chest: normocephalic and head atraumatic Trace L LE edema, peripheral pulses intact Skin: no rashes, warm and dry Neurologic: awake; not confused Speech / Cognition: normal speech Psychiatric: A+Ox3, euthymic affect Discharge Data Allergies Allergy/AdvReac Type Severity Reaction Status Date / Time No Known Allergies Allergy Unverified 02/15/19 12:50 Consultations 02/15/19 13:38 ED Decision to Admit Stat 02/16/19 09:05 Consult Cardiology Routine Procedures Performed Operation Date: 02/17/19 08:30 Actual Procedures p Cath, Left with Cors and Vent - Scott Perkins MD s Cineradiography w/Routine Exam - Scott Perkins MD Ordered Studies 02/17/19 06:34 CL Cath Imgs for PACS use only Routine 02/17/19 15:20 CT angio chest dissec wo/w con Urgent Hospital Course (1) Chest pain, precordial: Sx concerning for ACS tropx3 negative. D/W cardio would like a stress test. This was done and was not fully negative. Will have a cardiac cath in the AM. Doubt P/E as patient had a negative d dimer, no tachycardia, no hypoxia. EKG neg for acute t/c Lyme given hx and exposure risk, testing was negative 'Cardiac cath was negative. Concern over possible prinzmetal's angina. Patien till be discharged on a low dose of calcium channel odalys. Will defer to PCP if dose needs to be increased, if symptoms return. If patient is having symptoms of hypotension, may eed to stop mediciation. (2) Hx of Lyme disease: Hx of sx resolution with tx despite neg Lyme testing Current bite, no rash Lyme negative (3) DVT prophylaxis: Ambulation Total Time Total Time Spent Total Time Spent (In Minutes): 35 Discharge Plan Discharge Items Patient Disposition: Home - Self-Care Reason For Visit: CHEST PAIN Discharge Diagnosis: chest pain Activity: Resume your previous activity Non-emergency contact: Primary Care Provider Call non-emergency contact if: you have any medication questions Follow-up/Referrals: LILA GOMEZ [Other] - 02/26/19 10:00 am (Please, follow up with Dr. Mcfarlane on FridayFebruary 26 at 10:00 am. *If you need to change this appointment, call her office at [phone].) Diet: Regular Addtl Attending Provider Instructions: You had multiple imaging done [facility] ruled out clots in your lungs, an aortic dissection, and coronary artery disease. You will be discharged, and will recommend followup with Pending Studies at Discharge: No Stand-Alone Forms: Call Back Authorization, [facility] Medications and DC Order Prescriptions: New nitroglycerin 0.4 mg tablet, sublingual 0.4 mg sublingual Q5M PRN (Reason: chest pain) Qty: 7 RF: 0 amlodipine 2.5 mg tablet 2.5 mg PO QPM Qty: 30 RF: 0 No Action No Known Home Medications RF: 0 Discharge Orders: Discharge Order (Routine); Ordered 02/17/19 Ordered By: Shayne Aiken Admission Data Admit Date/Time: 02/15/19 15:09 Attending Provider: Shayne Aiken Admit Provider: Vee Montano Primary Care Provider: Lila Mcfarlane Other Providers: Ted Ramirez Other Interventions: Discharge Summary Assessment (RN) Last Done: 02/17/19 17:31 DC Date/Time DO NOT enter until pt leaves facility: 02/17/19 18:13
== END 2019-02-17 18:13 | disposition home or self-care (01) ==
LOC: 2S 12:00 → ED 12:00 → SUATTDRO 15:09 → 2S 17:42
DX: Z82.49 Family history of ischemic heart disease and other diseases of the circulatory system; I25.118 Atherosclerotic heart disease of native coronary artery with other forms of angina pectoris